=== PATIENT | female | born 1975 | race African-American/Black ===

== ENCOUNTER → 2022-02-14 07:56 | Outpatient (CLI) | payer OTHER, SELFPAY ==
--- NOTE | 2022-02-14 | DI.MRI.S_ITS ---
PROCEDURE: MR WRIST LT WO CON INDICATIONS: Contusion of left hand, initial encounter TECHNIQUE: Noncontrast coronal proton density fast spin echo and T2 fast spin echo with fat saturation; coronal 3-D gradient echo, axial T1 spin echo and T2 fast spin echo with fat saturation, sagittal T1 spin echo through the wrist. COMPARISON: None. FINDINGS: Image quality: Excellent. Bones and cartilage: The carpal bones are normally aligned. No bone marrow contusions or fractures. No evidence for avascular necrosis. Overlying cartilage surfaces appear normal. Carpal ligaments: The scapholunate and lunotriquetral ligaments appear intact. In the absence of intra-articular contrast, the extrinsic carpal ligaments are not well identified. On sagittal images, the pisohamate ligament appears intact. Triangular fibrocartilage complex: The triangular fibrocartilage appears intact. The adjacent meniscal homolog appears normal in the absence of intra-articular contrast. The extensor carpi ulnaris tendon is normal in location and morphology. Tendons and soft tissues: The carpal tunnel structures appear normal, including the median nerve. The ulnar nerve appears normal within Guyon's canal. All six extensor tendon compartments demonstrate normal morphology, without pathologic tendon sheath fluid. Elongated cystic structure over volar aspect of distal radius/radial styloid is seen and measures up to 9 x 3 x 4 mm in size. Mild edema involving left thenar muscles is seen suggestive of low-grade muscle strain. No intramuscular fluid collection. Rest of the left hand and wrist muscles show no gross signal abnormality. IMPRESSION: 1. No marrow edema. No fracture or dislocation. No evidence of osteonecrosis. 2. Suggestion of mild contusion versus muscle strain involving left thenar muscles. Rest of the muscles and tendons are grossly intact. 3. Intrinsic and extrinsic wrist ligaments are grossly intact. Triangular fibrocartilage complex is grossly intact. 4. Possible small ganglion cyst over volar aspect of distal radius/radial styloid as above. Dictated by: Ray Llamas M.D. on 02/14/2022 at 11:43 Approved by: Ray Llamas M.D. on 02/14/2022 at 11:47
== END ==
PROVIDERS: PCP Physician Assistant Medical; Referring Provider Physician Assistant Medical; Visit Provider Physician Assistant Medical
DX: S60.222A Contusion of left hand, initial encounter (principal); M67.432 Ganglion, left wrist
CPT/HCPCS: 73221